=== PATIENT | male | born 1990 | race Hispanic/Latino ===

== ENCOUNTER 2022-04-16 20:19 | Emergency (ER) | payer MEDICAID, OTHER ==
[~2022-04-16] VITALS: Ht 180.3 cm; Wt 111.1 kg
[2022-04-17] MEDS ORDERED: SULF1TAB42 PO (00:12)
[2022-04-17] MEDS ORDERED: CEPH500B PO (00:12)
[2022-04-17] MEDS ORDERED: MUPI22OI2 TP (00:13)
[2022-04-17 00:24] VITALS: BP 129/78
== END 2022-04-17 00:39 | disposition home or self-care (01) ==
LOC: EDH 20:19
DX: L02.216 Cutaneous abscess of umbilicus (principal); Z98.890 Other specified postprocedural states; Z90.89 Acquired absence of other organs
CPT/HCPCS: 76705